=== PATIENT | male | born 1930 | race Caucasian/White ===

== ENCOUNTER 2017-07-13 12:56 | Emergency (ER) | payer MEDICARE, OTHER ==
[2017-07-13] MEDS ORDERED: Sodium Chloride 0.9% 10 ML Syringe FLUSH PRN (13:01)
[2017-07-13] MEDS ORDERED: Sodium Chloride 0.9% 1,000 ML IV SCH (13:15)
--- NOTE | 2017-07-13 14:54 | EDM.PDOC ---
ED HPI GENERAL MEDICAL PROBLEM - General Chief Complaint: Syncope Stated Complaint: [facility] Time Seen by Provider: 07/13/17 12:56 Source of Information: Reports: Patient, EMS History Limitations: Reports: No Limitations - History of Present Illness INITIAL COMMENTS - FREE TEXT/NARRATIVE: The patient presents by [facility] for syncope. 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 He got lightheaded and leaned against the barn and passed out for a few seconds. They put him on the 4 m[address]bride and he did it again and vomited. He feels good now. He did eat breakfast and had coffee. He did not drink much fluids today. He has no fever , chills, cough, headache, chest pain, shortness of breath, abdominal pain, nausea or vomiting. He has no heart problems. Onset: Sudden Duration: Minutes: Severity: Moderate Improves with: Reports: None Worsens with: Reports: None Associated Symptoms: Reports: No Other Symptoms - Related Data Allergies Allergy/AdvReac Type Severity Reaction Status Date / Time No Known Allergies Allergy Verified 07/13/17 13:07 Home Meds: Home Meds Furosemide [Lasix] 40 mg PO DAILY 07/13/17 [History] Losartan Potassium [Cozaar] 50 mg PO DAILY 07/13/17 [History] Tamsulosin HCl [Flomax] 0.4 mg PO DAILY 07/13/17 [History] Past Medical History - Past Health History Medical/Surgical History: Denies Medical/Surgical History HEENT History: Reports: Impaired Vision Cardiovascular History: Reports: Hypertension Social & Family History - Tobacco Use Smoking Status *Q: Never Smoker - Caffeine Use Caffeine Use: Reports: Coffee - Recreational Drug Use Recreational Drug Use: No ED ROS GENERAL - Review of Systems Review Of Systems: See Below Constitutional: Reports: No Symptoms HEENT: Reports: No Symptoms Respiratory: Reports: No Symptoms Cardiovascular: Reports: No Symptoms Endocrine: Reports: No Symptoms GI/Abdominal: Reports: Nausea, Vomiting. Denies: Abdominal Pain : Reports: No Symptoms Musculoskeletal: Reports: No Symptoms - Physical Exam Exam: See Below Exam Limited By: No Limitations General Appearance: Alert, No Apparent Distress Ears: Normal External Exam Nose: Normal Inspection Head Exam: Atraumatic, Normocephalic Neck: Normal Inspection Respiratory/Chest: No Respiratory Distress, Lungs Clear, Normal Breath Sounds Cardiovascular: Regular Rate, Rhythm, No Edema, No Murmur GI/Abdominal: Soft, Non-Tender, No Organomegaly, No Mass Neuro Exam (Abbreviated): Alert, Oriented, CN II-XII Intact EKG INTERPRETATION EKG Date: 07/13/17 Time: 13:17 Rhythm: Other (Junctional rhythm) Rate (Beats/Min): 59 [place]: Normal P-Wave: Absent QRS: Normal ST-T: Normal QT: Normal EKG Interpretation Comments: PAC Course - Vital Signs Last Recorded V/S: Last Vital Signs Temp 97.1 F 07/13/17 13:03 Pulse 58 L 07/13/17 13:03 Resp 16 07/13/17 13:03 BP 137/73 07/13/17 13:03 Pulse Ox 97 07/13/17 13:03 - Orders/Labs/Meds Orders: Active Orders 24 hr Category Date Time Status Cardiac Monitoring [RC] . DIRECTED Care 07/13/17 13:01 Active EKG Documentation Completion [RC] STAT Care 07/13/17 13:02 Active Peripheral IV Care [RC] . DIRECTED Care 07/13/17 13:02 Active Sodium Chloride 0.9% [Normal Saline] 1,000 ml Med 07/13/17 13:15 Active IV .BOLUS Sodium Chloride 0.9% [Saline Flush] Med 07/13/17 13:01 Active 10 ml FLUSH ASDIRECTED PRN Peripheral IV Insertion Adult [OM.PC] Stat Oth 07/13/17 13:01 Ordered Medication Orders Sodium Chloride (Normal Saline) 1,000 mls @ 1,000 mls/hr IV .BOLUS EROS Last Admin: 07/13/17 13:30 Dose: 1,000 mls/hr Sodium Chloride (Saline Flush) 10 ml FLUSH ASDIRECTED PRN PRN Reason: Keep Vein Open Last Admin: 07/13/17 14:27 Dose: 10 ml Labs: Laboratory Tests 07/13/17 07/13/17 Range/Units 13:35 13:35 WBC 9.58 H (4.23-9.07) K/mm3 RBC 3.69 L (4.63-6.08) M/mm3 Hgb 12.2 L (13.7-17.5) gm/L Hct 36.2 L (40.1-51.0) % MCV 98.1 H (79.0-92.2) fl MCH 33.1 H (25.7-32.2) pg MCHC 33.7 (32.2-35.5) g/dl RDW Std Deviation 44.4 H (35.1-43.9) fL Plt Count 204 (163-337) K/mm3 MPV 9.3 L (9.4-12.3) fl Neut % (Auto) 79.4 H (34.0-67.9) % Lymph % (Auto) 12.4 L (21.8-53.1) % Merrick % (Auto) 7.3 (5.3-12.2) % Eos % (Auto) 0.5 L (0.8-7.0) Baso % (Auto) 0.3 (0.1-1.2) % Neut # (Auto) 7.60 H (1.78-5.38) K/mm3 Lymph # (Auto) 1.19 L (1.32-3.57) K/mm3 Merrick # (Auto) 0.70 (0.30-0.82) K/mm3 Eos # (Auto) 0.05 (0.04-0.54) K/mm3 Baso # (Auto) 0.03 (0.01-0.08) K/mm3 Sodium 137 (136-145) mEq/L Potassium 4.5 (3.5-5.1) mEq/L Chloride 103 (98-107) mEq/L Carbon Dioxide 28 (21-32) mEq/L Anion Gap 10.5 (5-15) BUN 23 H (7-18) mg/dL Creatinine 1.3 (0.7-1.3) mg/dL Est Cr Clr Drug Dosing 41.34 mL/min Estimated GFR (MDRD) 52 (>60) mL/min BUN/Creatinine Ratio 17.7 (14-18) Glucose 114 (83-115) mg/dL Calcium 8.9 (8.5-10.1) mg/dL Total Bilirubin 0.5 (0.2-1.0) mg/dL AST 34 (15-37) U/L ALT 36 (16-63) U/L Alkaline Phosphatase 118 H (46-116) U/L Troponin I < 0.017 (0.00-0.056) ng/mL Total Protein 6.7 (6.4-8.2) g/dl Albumin 3.5 (3.4-5.0) g/dl Globulin 3.2 gm/dL Albumin/Globulin Ratio 1.1 (1-2) Meds: Medications Generic Name Dose Route Start Last Admin Trade Name Freq PRN Reason Stop Dose Admin Sodium Chloride 1,000 mls @ 1,000 mls/hr 07/13/17 13:15 07/13/17 13:30 Normal Saline IV 1,000 mls/hr .BOLUS EROS Administration Sodium Chloride 10 ml 07/13/17 13:01 07/13/17 14:27 Saline Flush FLUSH 10 ml ASDIRECTED PRN Administration Keep Vein Open - Re-Assessments/Exams Free Text/Narrative Re-Assessment/Exam: 07/13/17 14:55 I ordered an IV NS 1L bolus, EKG, and labs. His EKG shows a junctional rhythm with no acute changes. His labs look good. I feel he was dehydrated. I will discharge him home. Departure - Departure Time of Disposition: 14:55 Disposition: Home, Self-Care 01 Condition: Good Clinical Impression: Dehydration Syncope Qualifiers: Syncope type: heat syncope Encounter type: initial encounter Qualified Code(s) : T67.1XXA - Heat syncope, initial encounter - Discharge Information Referrals: Sherrie Arroyo NP [Primary Care Provider] - 1 Week Additional Instructions: Drink plenty of fluids today and get some rest. Follow up with your provider in 1 week. - My Orders Last 24 Hours: My Active Orders 07/13/17 13:01 Cardiac Monitoring [RC] . DIRECTED Sodium Chloride 0.9% [Saline Flush] 10 ml FLUSH ASDIRECTED PRN Peripheral IV Insertion Adult [OM.PC] Stat 07/13/17 13:02 EKG Documentation Completion [RC] STAT Peripheral IV Care [RC] . DIRECTED 07/13/17 13:15 Sodium Chloride 0.9% [Normal Saline] 1,000 ml IV .BOLUS - Assessment/Plan Last 24 Hours: My Active Orders 07/13/17 13:01 Cardiac Monitoring [RC] . DIRECTED Sodium Chloride 0.9% [Saline Flush] 10 ml FLUSH ASDIRECTED PRN Peripheral IV Insertion Adult [OM.PC] Stat 07/13/17 13:02 EKG Documentation Completion [RC] STAT Peripheral IV Care [RC] . DIRECTED 07/13/17 13:15 Sodium Chloride 0.9% [Normal Saline] 1,000 ml IV .BOLUS
== END 2017-07-13 15:03 | disposition home or self-care (01) ==
LOC: JD.ED 12:56
DX: R55 Syncope and collapse (principal); E86.0 Dehydration; I10 Essential (primary) hypertension
CPT/HCPCS: 36415; 80053; 84484; 85025; 93005; 96360; 99284; J7040; J7050